=== PATIENT | female | born 1955 | race Caucasian/White ===

== ENCOUNTER 2022-01-20 12:49 | Outpatient (CLI) | payer MEDICARE, MEDICAID, SELFPAY ==
--- NOTE | 2022-01-20 13:21 | XR_ITS ---
WS: [id number] XR lumbar spine f/e only [id number] REASON FOR EXAM: THORACIC BACK PAIN/LUMBAR BACK PAIN FINDINGS: No significant compression deformity or focal lesion of the lumbar vertebrae. There is mild to moderate narrowing of the disc spaces L1-S1 most notable at L4-L5 and L5-S1. There is mild anterolisthesis of L4 on L5. No abnormal vertebral body movement with flexion and extension. The lumbar spine does not appear to be significantly changed compared to 03/08/2018. XR/XR lumbar spine f/e only [id number] IMPRESSION: Stable abnormal lumbar spine as above.
--- NOTE | 2022-01-20 13:21 | XR_ITS ---
WS: [id number] XR thoracic spine 3V* [id number] REASON FOR EXAM: THORACIC BACK PAIN FINDINGS: Mild thoracic scoliosis convex right. No significant compression deformity or focal lesion of the thoracic vertebral bodies. Narrowing of the intervertebral disc spaces with osteophytosis in the mid and lower thoracic spine. The thoracic spine appears relatively unchanged compared to 04/21/2015. XR/XR thoracic spine 3V* [id number] IMPRESSION: Stable thoracic spine with mild scoliosis and degenerative spondylosis.
== END 2022-01-20 12:50 | disposition home or self-care (01) ==
LOC: RAD 12:56
PROVIDERS: PCP Nurse Practitioner Family; Visit Provider Nurse Practitioner Family
DX: M54.50 Low back pain, unspecified (principal); M41.9 Scoliosis, unspecified; M47.814 Spondylosis without myelopathy or radiculopathy, thoracic region
CPT/HCPCS: 72072; 72120

== ENCOUNTER 2022-07-08 08:49 | Emergency (ER) | payer MEDICARE, MEDICAID, SELFPAY ==
[2022-07-08 08:54] VITALS: BP 114/70; PULSE 92; RESP 18; TEMP 36.2; O2SAT 98; BMI 25.0
--- NOTE | 2022-07-08 09:06 | XRR_ITS ---
PROCEDURE INFORMATION: Exam: XR Left Foot Exam date and time: 07/08/2022 9:10 AM Age: 66 years old Clinical indication: Pain and injury or trauma; Fall; Sprain or strain; Foot; Left; Additional info: Fall/pain TECHNIQUE: Imaging protocol: Radiologic exam of the Left foot. Views: 3 or more views. COMPARISON: No relevant prior studies available. FINDINGS: Bones/joints: No acute fracture is seen. The joints are unremarkable. Os trigonum noted. Small calcaneal plantar Achilles enthesophyte noted. Soft tissues: Minimal soft tissue swelling surrounding the ankle. XR/XR foot LT min 3V* [id number] IMPRESSION: No fracture or dislocation identified.
--- NOTE | 2022-07-08 09:06 | XRR_ITS ---
PROCEDURE INFORMATION: Exam: XR Left Ankle Exam date and time: 07/08/2022 9:10 AM Age: 66 years old Clinical indication: Pain and injury or trauma; Fall; Sprain or strain; Ankle; Left; Additional info: Fall/pain TECHNIQUE: Imaging protocol: Radiologic exam of the Left ankle. Views: 3 or more views. COMPARISON: No relevant prior studies available. FINDINGS: Bones/joints: The ankle mortise is normally aligned. No acute fracture is seen. Soft tissues: Minimal soft tissue swelling surrounding the ankle. XR/XR ankle LT min 3V* [id number] IMPRESSION: No fracture or dislocation.
--- NOTE | 2022-07-08 09:07 | W.ED.LOWEXIN ---
HPI - Extremity Injury (Lower) General: Chief Complaint: Extremity Injury, Lower Stated Complaint: fall, left foot injury Time Seen by Provider: 07/08/22 08:51 Source: patient Mode of arrival: ambulatory Limitations: no limitations History of Present Illness: Patient is a 66-year-old female who presents to ED today for evaluation of a left foot and ankle injury that she sustained 3 days ago after tripping and twisting the ankle. Patient states it bent backwards . She states she was initially able to walk on it but no longer can. She has noticed swelling and bruising to the top of her foot and ankle. She has no other injuries or complaints at this time. complaint: ankle injury and foot injury Onset (ago): day(s) Type of Injury: inversion and hyperflexion Place: home Severity: moderate Relieving factors: immobilization Exacerbating factors: weight bearing, movement and palpation Associated symptoms: Reports inability to bear weight Other symptoms: none Review of Systems Musc: Reports: extremity pain (L foot), extremity swelling (L foot) and joint pain (L ankle) Neuro: Denies: numbness in extremities or sensory changes Physical Exam Const: COMMON NORMALS: no acute distress, patient oriented x3, no limitations, healthy appearing, alert and well nourished Extremity: COMMON NORMALS: capillary refill normal GENERAL: Yes normal exam except as noted LEFT LOWER EXTREMITY: Yes ankle joint and Yes foot & digits OTHER: pt has ecchymosis and swelling throughout dorsolateral L foot extending into ankle; most of her tenderness does seem to be mid dorsal foot; no obvious bony deformities/dislocations noted; cap refill/pulses/sensation normal Neuro: COMMON NORMALS: patient oriented x3, moves all extremities, no focal motor deficits and no sensory deficits noted SENSORIUM/ORIENTATION: Yes alert Course Vital Signs: Vital signs: Vital Signs Temperature 97.1 F L 07/08/22 08:54 Pulse Rate 77 07/08/22 10:07 Respiratory Rate 16 07/08/22 10:07 Blood Pressure 120/67 07/08/22 10:07 Pulse Oximetry 99 07/08/22 10:07 Oxygen Delivery Me thod 07/08/22 08:54 MDM - Extremity Injury (Lower) Medical Decision Making No fractures visualized on XRs. Discussed CHARLEEN wrap and crutches however patient states she does not feel she would be a very good candidate for crutches as she is a cancer patient and chronically weak. She feels that crutches would increase her fall risk. She is requesting some type of splint/boot to help her be able to ambulate better on her foot. We will try to place her in a [employer] surgical shoe for support. Recommend ice and elevation. I want her to follow-up with her PCP in 1 to 2 weeks if pain does not seem to be improving. Lab Data Radiology Impressions Ankle X-Ray 07/08/22 09:06 IMPRESSION: No fracture or dislocation. Foot X-Ray 07/08/22 09:06 IMPRESSION: No fracture or dislocation identified. Discharge Plan Discharge Patient Disposition: Home Clinical Impression: Sprain of left foot Qualifiers: Encounter type: initial encounter Qualified Code(s): S93.602A - Unspecified sprain of left foot, initial encounter Condition: Stable Discharge Orders: Discharge ED (Routine); Ordered 07/08/22 Ordered By: Raissa Fisher Referrals: Gustavo Bentley MD [Primary Care Provider] - Patient Instructions: RICE Therapy Coding Level of Care Code ED Sorting Cows Worker for Adrianag Fwd Exam Expanded Problem Focused
--- NOTE | 2022-07-08 09:09 | PC.NURSE ---
pt reports a fall on 07/05 after tripping over her slipper that wasnt on correctly. pt c/o pain to right foot, worse to lateral ankle. denies other injury. swelling and bruising noted over left foot, pedal pulse palpable. CMS intact, pt does reports some numbness and tingling.
--- NOTE | 2022-07-08 09:38 | PC.NURSE ---
report given to TIM Mata to assume care
[2022-07-08 10:07] VITALS: BP 120/67; PULSE 77; RESP 16; O2SAT 99
--- NOTE | 2022-07-08 10:22 | PC.NURSE ---
womens large post surgical shoe applied to left foot per verbal order from carlotta long
[2022-07-08 10:28] VITALS: BP 125/76; PULSE 86; RESP 16; O2SAT 94
== END 2022-07-08 10:29 | disposition home or self-care (01) ==
PROVIDERS: Emergency Provider Physician Assistant; PCP Internal Medicine
DX: S93.602A Unspecified sprain of left foot, initial encounter (principal); X50.1XXA Overexertion from prolonged static or awkward postures, initial encounter
CPT/HCPCS: 73610; 73630; 99283

== ENCOUNTER 2022-11-19 08:07 | Oncology outpatient (recurring) (ONCR) | payer MEDICARE, MEDICAID, SELFPAY ==
[2022-11-19 09:21] LABS: Basophils % 0.8 %; Eosinophils # 0.1 10^3/uL (0.0-0.8); Eosinophils % 3.1 %; Hematocrit 38.3 % (37.0-47.0); Hemoglobin 12.5 g/dL (11.5-15.3); Lymphocytes # 0.6 10^3/uL (0.8-4.8); Lymphocytes % 15.5 %; Mean Corpuscular HGB Conc 32.6 g/dL (30.0-36.0); Mean Corpuscular Hemoglobin 31.8 pg (28.0-34.0); Mean Corpuscular Volume 97.5 fl (81-99); Mean Platelet Volume 10.3 fL (7.4-10.4); Monocytes # 0.4 10^3/uL (0.2-0.9); Monocytes % 9.8 %; Neutrophils # 2.73 10^3/uL (1.8-7.7); Neutrophils % 70.5 %; Nucleated Red Blood Cells % 0 %; Platelet Count 232 10^3/cmm (130-400); Red Blood Count 3.93 10^6/uL (4.1-5.3); Red Cell Distribution Width 14.5 % (12.1-15.1); White Blood Count 3.9 10^3/uL (4.0-10.0)
[2022-11-19 09:56] LABS: Alanine Aminotransferase 13 U/L (0-33); Albumin Level 3.9 g/dL (3.5-5.2); Alkaline Phosphatase 44 U/L (35-105); Anion Gap 12.9 (5-19); Aspartate Amino Transferase 17 U/L (0-32); Blood Urea Nitrogen 7 mg/dL (8-23); Calcium 9.4 mg/dL (8.5-10.5); Carbon Dioxide 26 mmol/L (22-29); Chloride 104 mmol/L (98-107); Globulin 2.4 g/dL (1.3-4.6); Glomerular Filtration Rate 99.4 mL/min (90-130); Glucose 93 mg/dL (65-115); Osmolality Calculated 286 mOsm/kg (285-295); Potassium 3.9 mmol/L (3.5-5.1); Sodium 139 mmol/L (136-145); Thyroid Stimulating Hormone 3.23 uIU/mL (0.27-4.20); Total Bilirubin 0.5 mg/dL (0.15-1.2); Total Protein 6.3 g/dL (6.6-8.7)
[2022-11-19 15:59] VITALS: BP 120/78; PULSE 74; RESP 18; TEMP 36.6; O2SAT 98
== END 2022-12-02 23:59 | disposition home or self-care (01) ==
PROVIDERS: PCP Family Medicine; Visit Provider Internal Medicine Medical Oncology
DX: C21.1 Malignant neoplasm of anal canal (principal); Z95.828 Presence of other vascular implants and grafts; Z92.3 Personal history of irradiation
CPT/HCPCS: 36591; 80053; 84443; 85025; 99205

== ENCOUNTER 2022-12-15 14:23 | Oncology outpatient (recurring) (ONCR) | payer MEDICARE, MEDICAID, SELFPAY | END 2023-01-01 23:59 | disposition home or self-care (01) | PROVIDERS: PCP Family Medicine; Visit Provider Internal Medicine Medical Oncology | DX: Z08 Encounter for follow-up examination after completed treatment for malignant neoplasm (principal); Z85.048 Personal history of other malignant neoplasm of rectum, rectosigmoid junction, and anus; Z92.3 Personal history of irradiation; Z87.891 Personal history of nicotine dependence | CPT/HCPCS: 99213 ==

== ENCOUNTER 2023-01-27 10:16 | Outpatient (CLI) | payer MEDICARE, MEDICAID, SELFPAY ==
--- NOTE | 2023-01-27 10:26 | CT_ITS ---
WS: [id number] LDCT LUNG CANCER SCREENING TECHNIQUE: Noncontrast CT of the chest with coronal and sagittal reformatted images. CLINICAL INFORMATION: HISTORY OF TOBACCO USE COMPARISON: None. DLP: 52.30 mGy.cm DIvol: Mean CTDIvol: 1.00 (mGy) All CT scans at [facility] use at least one of these dose optimization techniques: automat ed exposure control; mA and/or kV adjustment per patient size (includes targeted exams where dose is matched to clinical indication); or iterative reconstruction. FINDINGS: Lungs are well aerated. No acute pulmonary infiltrates. No suspicious pulmonary parenchymal abnormalities. Normal caliber thoracic aorta. Aortic calcification. No axillary lymphadenopathy. Small RIGHT anterio r upper chest wall nodule or fluid in the area of recently removed port. No axillary lymphadenopathy. Adrenal glands are normal. Normal GE junction. Mild thoracic kyphosis. Anterior hypertrophic changes thoracic spine. CT/CT lung screening [id number] IMPRESSION: LUNG-RADS: 1-Negative FOLLOW UP: 12 Month: Continue annual screening with LDCT
--- NOTE | 2023-01-27 10:38 | MM_ITS ---
WS: [id number] BILATERAL 3D TOMOSYNTHESIS DIGITAL SCREENING MAMMOGRAPHY WITH CAD CLINICAL INFORMATION: SCREENING HISTORY: Screening mammogram. No current complaints. COMPARISON: None. TECHNIQUE: Bilateral CC and MLO views. FINDINGS: Scattered fibroglandular densities bilaterally. No suspicious focal mass, asymmetry, calcifications, or architectural distortion. No evidence of malignancy. Punctate and lucent centered calcifications. MM/[place] [id number] IMPRESSION: BI-RADS: 2-Benign FOLLOW UP: 1 Year Follow-up Recommend return to annual screening mammography.
== END 2023-01-27 10:17 | disposition home or self-care (01) ==
PROVIDERS: PCP Family Medicine; Visit Provider Family Medicine
DX: Z12.2 Encounter for screening for malignant neoplasm of respiratory organs (principal); Z12.31 Encounter for screening mammogram for malignant neoplasm of breast
CPT/HCPCS: 71271; 77063; 77067

== ENCOUNTER 2023-03-23 08:24 | Oncology outpatient (recurring) (ONCR) | payer MEDICARE, MEDICAID, SELFPAY | END 2023-04-03 23:59 | disposition home or self-care (01) | PROVIDERS: PCP Family Medicine; Visit Provider Internal Medicine Medical Oncology | DX: C21.1 Malignant neoplasm of anal canal (principal); R53.83 Other fatigue; Z79.899 Other long term (current) drug therapy | CPT/HCPCS: 99213 ==

== ENCOUNTER 2023-04-29 14:10 | Outpatient (CLI) | payer MEDICARE, MEDICAID, SELFPAY ==
--- NOTE | 2023-04-29 14:14 | XR_ITS ---
WS: [id number] DEXA (DUAL ENERGY X-RAY ABSORPTIOMETRY) Bone mineral density was performed using a Zadby machine. HISTORY: Osteoporosis screening COMPARISON: None available. Lumbar spine BMD (L1-L4): 1.346 g/cm2 T score: 1.4 Z score: 2.9 Total hip BMD: Left: 0.975 g/cm2. T score: -0.3 Z score: 1.0 Right: 0.999 g/cm2. T score: -0.1 Z score: 1.2 10 year probability of a major osteoporotic fracture is 9.3%. IMPRESSION: NORMAL BONE MINERAL DENSITY based upon the WHO classification for females.
== END 2023-04-29 14:11 | disposition home or self-care (01) ==
LOC: RAD 14:10
PROVIDERS: PCP Family Medicine; Visit Provider Family Medicine
DX: Z13.820 Encounter for screening for osteoporosis (principal); Z78.0 Asymptomatic menopausal state
CPT/HCPCS: 77080

== ENCOUNTER 2024-03-21 08:03 | Emergency (ER) | payer MEDICARE, MEDICAID, SELFPAY ==
[2024-03-21 08:07] VITALS: BP 155/79; PULSE 72; RESP 18; TEMP 36.8; O2SAT 95; BMI 28.8
--- NOTE | 2024-03-21 08:11 | XR_ITS ---
WS: [id number] PORTABLE CHEST HISTORY: Shortness of breath COMPARISON: 10/14/2018 Lungs are clear and well expanded. No pleural effusion or pneumothorax. Cardiac size: Normal. Mediastinum/Aorta: Normal mediastinum. Deformity of the distal LEFT clavicle is probably from an old remote fracture with hypertrophic bone formation. XR/XR chest 1V portable [id number] IMPRESSION: No pneumonia.
--- NOTE | 2024-03-21 08:11 | ECG_ITS ---
[facility] Test Date: 2024-03-21 Pat Name: Sara Márquez Department: Room: Gender: Female Registrar Assistant: : 1955 Requested By: Brenda Goetz Order Number: [id number] Jose Miguel MD: Enoc Cummins M.D. Measurements Intervals [place] Rate: 65 P: 64 DE: 203 QRS: 42 QRSD: 73 T: 73 QT: 397 QTc: 414 Interpretive Statements SINUS RHYTHM POSSIBLE LEFT ATRIAL ENLARGEMENT [-0.1mV P-WAVE IN V1/V2] LOW QRS VOLTAGE IN PRECORDIAL LEADS [QRS DEFLECTION < 1.0 mV IN CHEST LEADS] Compared to ECG 07/12/2015 13:20:51 Low QRS voltage now present Electronically Signed On 03-21-2024 11:15:12 CDT by Enoc Cummins M.D. [id number]
[2024-03-21 08:15] VITALS: BP 155/79; RESP 18; O2SAT 98
[2024-03-21 08:42] LABS: Basophils % 0.8 %; Eosinophils # 0.2 10^3/uL (0.0-0.8); Eosinophils % 3.8 %; Hematocrit 39.7 % (36-47); Lymphocytes # 0.7 10^3/uL (0.8-4.8); Mean Corpuscular HGB Conc 33.2 g/dL (30-55); Mean Corpuscular Hemoglobin 31.1 pg (27-33); Mean Corpuscular Volume 93.6 fl (85-98); Mean Platelet Volume 9.9 fL (7.4-10.4); Monocytes # 0.4 10^3/uL (0.2-0.9); Monocytes % 8.6 %; Neutrophils # 3.39 10^3/uL (1.8-7.7); Neutrophils % 71.6 %; Nucleated Red Blood Cells % 0 %; Platelet Count 243 10^3/cmm (157-399); Red Blood Count 4.24 10^6/uL (3.85-5.65); Red Cell Distribution Width 14.7 % (12.1-15.1); White Blood Count 4.74 10^3/uL (3.29-11.43)
--- NOTE | 2024-03-21 08:58 | ED_ITS ---
HPI - Extremity Problem 2 General: Chief complaint: Extremity Problem,Nontraumatic Stated complaint: Left hip pain/lower abd and back/blood in stool Time Seen by Provider: 03/21/24 08:06 History of Present Illness: 68-year-old female who presents emergenc y room with hip and low back pain. Apparently this is chronic. She is listed in her pain meds morphine and oxycodone. She says she needs to get back in with a pain doctor but has not been able to. She says she also has a history of colon cancer but quit with follow-up with that. Is also complaining of some lower abdominal pain. No nausea or vomiting. She also says she feels somewhat short of breath. Some cough. She is a former smoker. No altered mental status. No focal motor deficits. Related Data Home Medications Medication Instructions Recorded Confirmed polyethylene glycol 3350 17 17 g PO DAILY PRN constipation 07/24/22 03/21/24 gram/dose oral powder (Miralax) turmeric 400 mg capsule See Rx Instructions PO .topical 11/19/22 03/21/24 Previous Rx's Medication Instructions Recorded estradiol 0.01% (0.1 mg/gram) See Rx Instructions .Route 01/17/24 vaginal cream .COMPLEX #43 grams azithromycin 250 mg tablet See Rx Instructions PO .COMPLEX #6 03/21/24 (Zithromax Z-Handy) tabs prednisone 20 mg tablet 60 mg (3 x 20 mg) PO DAILY #20 tabs 03/21/24 tramadol 50 mg tablet 50 mg PO Q8H PRN pain #20 tabs 03/21/24 Allergies Allergy/AdvReac Type Severity Reaction Status Date / Time No Known Allergies Allergy Verified 03/23/23 10:23 Review of Systems 2 Narrative: Constitutional symptoms: Negative except as documented in HPI. Skin symptoms: Negative except as documented in HPI. Eye symptoms: Negative except as documented in HPI. ENMT symptoms: Negative except as documented in HPI. Respiratory symptoms: Negative except as documented in HPI. Cardiovascular symptoms: Negative except as documented in HPI. Gastrointestinal symptoms: Negative except as documented in HPI. Genitourinary symptoms: Negative except as documented in HPI. Musculoskeletal symptoms: Negative except as documented in HPI. Neurologic symptoms: Negative except as documented in HPI. Psychiatric symptoms: Negative except as documented in HPI. Endocrine symptoms: Negative except as documented in HPI. PFS ED 2 PFSH: Medical History Anal cancer Degenerative arthritis Degenerative joint disease of spine Hx of class IV angina pectoris Surgical History History of coronary angiogram (2013) Hx of hysterectomy Family History Father CAD (coronary artery disease) Diabetes Dementia Hyperlipidemia Hypertension Mother Diabetes COPD (chronic obstructive pulmonary disease) Hyperlipidemia Hypertension Brother CAD (coronary artery disease) Sister Diabetes Hypertension Other Cancer Lung disease Psychiatric illness Stroke Denies family history of Clotting disorder Chronic kidney disease (CKD) Suicide Anesthesia complication Bleeding disorder Social History (Updated 03/23/23 @ 09:37 by Dwain Elkins) Smoking and tobacco/nicotine status: current every day tobacco/nicotine user Second hand smoke exposure: No Alcohol intake: current Alcohol intake frequency: holidays/special occasions only Substance/Drug Use: never Lives independently: Yes Marital status: service: No Current occupational status: disabled Current gender identity: Female Special ad needs: No Agree to transfusion: Yes Physical Exam 2 Narrative: EXAM NARRATIVE: General: Alert, no acute distress. Skin: Warm, dry. Head: Normocephalic, atraumatic. Neck: Supple, trachea midline. Eye: Extraocular movements are intact. Ears, nose, mouth and throat: mucosa moist. Cardiovascular: Regular, Normal peripheral perfusion. Respiratory: Lungs are clear to auscultation, respirations are non-labored, breath sounds are equal, Symmetrical chest wall expansion. Gastrointestinal: Soft, Nontender, Non distended Musculoskeletal: Normal ROM, no deformity. Neurological: Alert and oriented, No focal neurological deficit observed. Psychiatric: Cooperative, appropriate mood & affect. Course 2 Vital Signs: Vital signs: Vital Signs Temperature 98.2 F 03/21/24 08:07 Pulse Rate 74 03/21/24 12:18 Respiratory Rate 16 03/21/24 09:25 Blood Pressure 139/71 03/21/24 12:18 Pulse Oximetry 95 03/21/24 12:18 Oxygen Delivery Me thod Room Air 03/21/24 09:25 MDM - Extremity (Nontraumatic) Medical Decision Making Differential diagnosis for patient with shortness of breath includes but is not limited to and based on the above HPI, review of systems and physical exam: Pneumonia. Bronchitis. Asthma or COPD with acute exacerbation. Acute coronary syndrome / [place]. Pulmonary embolism. Anxiety. Congestive heart failure. Viral infections including influenza and Covid-19. Atrial fibrillation. Anxiety. Pleural effusion. Pneumothorax. Workup: Lab work, chest X-ray and EKG ordered to evaluate, rule in and rule out above pathologies Chest x-ray: No acute process. No infiltrate. No pneumothorax. This was reviewed and interpreted by myself the ER physician. Lab Review: Laboratory results were reviewed and interpreted by myself the emergency room physician. No leukocytosis. Hemoglobin normal at 13. No renal failure. LFTs are normal. Urinalysis is negative for infection. CT of the abdomen and pelvis with contrast: No acute process. She has diffuse diverticulosis. There is some rectal thickening but no obvious masses. This was reviewed and interpreted by myself the emergency room physician. I also reviewed the radiology report. I reviewed the patient's medical record. Reexamination: Patient remained stable. No increased work of breathing. No altered mental status. No focal motor deficits. Assessment and plan: Chronic pain syndrome COPD exacerbation ?IV steroids in the emergency room Toradol and albuterol. She has a history of being on morphine and oxycodone. Advised that she follow-up with a pain doctor if she wants to resume these pain medications. - Discharged home - Discussed findings and plan with patient. Answered any questions. - All laboratory values were reviewed and interpreted personally by myself, the ER physician - All imaging was reviewed and interpreted personally by myself, the ER physician. - Evaluation and treatment of this problem were appropriate in the emergency setting Lab Data 03/21/24 08:32 03/21/24 08:32 Radiology Impressions Chest X-Ray 03/21/24 08:11 IMPRESSION: No pneumonia. Chest/Abdomen/Pelvis CT 03/21/24 09:34 IMPRESSION: 1. No pneumonia. 2. Mild pylorus and proximal duodenal wall thickening. May be due to mild gastritis or duodenitis. No ulcer identified. No free fluid or free air. 3. Near diffuse albrecht diverticulosis without acute diverticulitis. 4. Minimal thickening of the rectal wall with perirectal fat stranding. No mass is identified. Laboratory Results WBC 4.74 10^3/uL (3.29-11.43) 03/21/24 08:32 RBC 4.24 10^6/uL (3.85-5.65) 03/21/24 08:32 Hgb 13.20 g/dL (11.27-16.99) 03/21/24 08:32 Hct 39.7 % (36-47) 03/21/24 08:32 MCV 93.6 fl (85-98) 03/21/24 08:32 MCH 31.1 pg (27-33) 03/21/24 08:32 MCHC 33.2 g/dL (30-55) 03/21/24 08:32 RDW 14.7 % (12.1-15.1) 03/21/24 08:32 Plt Count 243 10^3/cmm (157-399) 03/21/24 08:32 MPV 9.9 fL (7.4-10.4) 03/21/24 08:32 Neut % (Auto) 71.6 % 03/21/24 08:32 Lymph % (Auto) 15.0 % 03/21/24 08:32 Cole % (Auto) 8.6 % 03/21/24 08:32 Eos % (Auto) 3.8 % 03/21/24 08:32 Baso % (Auto) 0.8 % 03/21/24 08:32 Neut # (Auto) 3.39 10^3/uL (1.8-7.7) 03/21/24 08:32 Lymph # (Auto) 0.7 10^3/uL (0.8-4.8) L 03/21/24 08:32 Cole # (Auto) 0.4 10^3/uL (0.2-0.9) 03/21/24 08:32 Eos # (Auto) 0.2 10^3/uL (0.0-0.8) 03/21/24 08:32 Baso # (Auto) 0.0 10^3/uL (0.0-0.1) 03/21/24 08:32 Nucleated RBC % (auto) 0 % 03/21/24 08:32 Nucleated RBCs # 0.0 /100WBC 03/21/24 08:32 Sodium 141 mmol/L (136-145) 03/21/24 08:32 Potassium 4.4 mmol/L (3.5-5.1) 03/21/24 08:32 Chloride 107 mmol/L (98-107) 03/21/24 08:32 Carbon Dioxide 24 mmol/L (22-29) 03/21/24 08:32 Anion Gap 14.4 (5-19) 03/21/24 08:32 BUN 11 mg/dL (8-23) 03/21/24 08:32 Creatinine 0.7 mg/dL (0.5-0.9) 03/21/24 08:32 GFR Calculation 83.0 mL/min (90-130) L 03/21/24 08:32 Glucose 131 mg/dL (65-115) H 03/21/24 08:32 Calculated Osmolality 293 mOsm/kg (285-295) 03/21/24 08:32 Calcium 9.1 mg/dL (8.5-10.5) 03/21/24 08:32 Total Bilirubin 0.4 mg/dL (0.15-1.2) 03/21/24 08:32 AST 16 U/L (0-32) 03/21/24 08:32 ALT 14 U/L (0-33) 03/21/24 08:32 Alkaline Phosphatase 55 U/L (35-105) 03/21/24 08:32 C-Reactive Protein 3.0 mg/L (0.0-4.9) 03/21/24 08:32 NT-Pro-B Natriuret Pep < 36 pg/mL (0-125) 03/21/24 08:32 Total Protein 6.7 g/dL (6.6-8.7) 03/21/24 08:32 Albumin 4.0 g/dL (3.5-5.2) 03/21/24 08:32 Globulin 2.7 g/dL (1.3-4.6) 03/21/24 08:32 Urine Color Yellow (Yellow) 03/21/24 08:40 Urine Appearance Clear (CLEAR) 03/21/24 08:40 Urine pH 5 (5-7) 03/21/24 08:40 Ur Specific [place] 1.015 (1.005-1.030) 03/21/24 08:40 Urine Protein Neg (Negative) 03/21/24 08:40 Urine Glucose (UA) Norm (Normal) 03/21/24 08:40 Urine Ketones Negative (Negative) 03/21/24 08:40 Urine Blood Neg (Negative) 03/21/24 08:40 Urine Nitrate Negative (Negative) 03/21/24 08:40 Urine Bilirubin Neg (Negative) 03/21/24 08:40 Urine Urobilinogen Norm mg/dL (Negative) 03/21/24 08:40 Ur Leukocyte Esterase 1+ (Negative) H 03/21/24 08:40 Urine RBC None /hpf (0-2) 03/21/24 08:40 Urine WBC 0-4 /hpf (0-5) H 03/21/24 08:40 Ur Squamous Epith Cells 0-4 /hpf (0-5) H 03/21/24 08:40 Amorphous Sediment Not Reportable 03/21/24 08:40 Urine Bacteria None /hpf (NONE) 03/21/24 08:40 Urine Mucus Trace /hpf 03/21/24 08:40 All radiology interpretation(s) finalized by discharge Discharge Plan Discharge Patient Disposition: Home Clinical Impression: COPD with acute exacerbation, Chronic pain syndrome Condition: Stable Prescriptions: New Zithromax Z-Handy 250 mg tablet See Rx Instructions .ROUTE .COMPLEX Qty: 6 0RF Rx Instructions: For 250 mg dose pack: take 500 mg today (day 1), then 250 mg for 4 days (days 2-5) prednisone 20 mg tablet 60 mg PO DAILY Qty: 20 0RF Rx Instructions: 3 tabs (60 mg) x 3 days. 2 tabs (40 mg) x 3 days. 1 tab (20 mg) x 3 days. 1/2 tab (10 mg) x 4 days tramadol 50 mg tablet 50 mg PO Q8H PRN (Reason: pain) Qty: 20 0RF No Action polyethylene glycol 3350 [Miralax] 17 gram/dose powder 17 g PO DAILY PRN (Reason: constipation) turmeric 400 mg capsule See Rx Instructions PO .topical Rx Instructions: paste with H2O2 (hydrogen Peroxide orally TOPICAL; estradiol 0.01 % (0.1 mg/gram) cream See Rx Instructions .ROUTE .COMPLEX Qty: 43 0RF Dose Instruction: INSERT 1 APPLICATORFUL VAGINALLY EVERY OTHER DAY FOR 14 DAYS Rx Instructions: INSERT 1 APPLICATORFUL VAGINALLY EVERY OTHER DAY FOR 14 DAYS Discharge Orders: Discharge ED (Routine); Ordered 03/21/24 Ordered By: Brenda Rodriguez Referrals: Osbaldo Kumar MD [Primary Care Provider] - Discharge Diet: Usual diet Discharge Activity: Increase activity as tolerated Patient Instructions: COPD (Chronic Obstructive Pulmonary Disease) (ED) Activity Restrictions/Additional Instructions: Thank you for choosing [facility] for your healthcare needs today. Please realize this is an emergency room and that we are providing you with a medical screening exam and this may not be complete and all inclusive of all the testing and or work up that you may need to determine your ailment or severity of your illness. You have been screened and evaluated and felt safe for discharge. Health conditions do change or evolve sometimes and as such it is important that you follow up with your Primary Doctor to be re checked, 3-5 days is a general good time frame for follow up. You are always welcome to return to the ED for re assessment if your symptoms are worsening or you have new concerns Coding Level of Care Code ED Multifocal Button Inspector for Jean-Pierre Burkett
[2024-03-21 09:17] LABS: Alanine Aminotransferase 14 U/L (0-33); Alkaline Phosphatase 55 U/L (35-105); Anion Gap 14.4 (5-19); Aspartate Amino Transferase 16 U/L (0-32); Blood Urea Nitrogen 11 mg/dL (8-23); Calcium 9.1 mg/dL (8.5-10.5); Carbon Dioxide 24 mmol/L (22-29); Chloride 107 mmol/L (98-107); Creatinine Clr Calc Pharmacy 68.7198; Globulin 2.7 g/dL (1.3-4.6); Glucose 131 mg/dL (65-115); NT Pro B Type Natriuretic Pept < 36 pg/mL (0-125); Osmolality Calculated 293 mOsm/kg (285-295); Potassium 4.4 mmol/L (3.5-5.1); Sodium 141 mmol/L (136-145); Total Bilirubin 0.4 mg/dL (0.15-1.2); Total Protein 6.7 g/dL (6.6-8.7)
[2024-03-21 09:19] LABS: Bilirubin Urine Neg (Negative); Blood Urine Neg (Negative); Glucose Urine UA Norm (Normal); Ketones Urine Negative (Negative); Leukocyte Esterase Urine 1+ (Negative); Nitrate Urine Negative (Negative); Protein Urine Neg (Negative); Specific Gravity, Urine 1.015 (1.005-1.030); Urine Appearance Clear (CLEAR); Urine Color Yellow (Yellow); Urobilinogen Urine Norm (Negative); pH Urine 5 (5-7)
[2024-03-21 09:21] LABS: Add Urine Culture? No; Mucus Urine TRACE /hpf; Squamous Epithelial Cell Urine 0-4 /hpf (0-5); WBC Urine 0-4 /hpf (0-5)
[2024-03-21] MEDS: ketorolac 30 mg/mL INJ 15 MG IVP (09:22)
[2024-03-21] MEDS: methylPREDNISolone sod succ 125 mg/2 mL INJ IVP (09:22)
[2024-03-21] MEDS: albuterol 2.5 mg/3 mL Neb INHALATION (09:24)
[2024-03-21 09:25] VITALS: PULSE 76; RESP 16; O2SAT 95
--- NOTE | 2024-03-21 09:34 | CT_ITS ---
WS: [id number] CT CHEST, ABDOMEN AND PELVIS WITH CONTRAST HISTORY: sob, low abd pain TECHNIQUE: Contiguous 5 mm axial imaging performed through the chest, abdomen and pelvis with IV cont rast, oral contrast has not been provided. Coronal and sagittal reformats chest. Coronal and sagittal reformats through the abdomen and pelvis. All CT scans at [facility] use at least one of the se dose optimization techniques: automated exposure control; mA and/or kV adjustment per patient size (includes targeted exams where dose is matched to clinical indication); or iterative reconstruction. CONTRAST: Omnipaque 350; 100 mL IV. DLP: 1142.08 mGy.cm COMPARISON: Lung screening 01/27/[address]: Lungs are clear. No pneumonia. No pulmonary mass or nodule. Heart is normal size. No perica rdial or pleural effusions. No adenopathy. Very mild esophageal wall thickening. No mass. Abdomen CT: Liver and spleen are normal size. Normal gallbladder. No adrenal mass. Normal pancreas. N o renal obstruction and no solid mass. Moderate atherosclerotic plaque within the aorta. Stomach is not distended. There is mild wall thickening involving the pylorus and proximal duodenum. No small bowel obstruction. Mild near diffuse diverticulosis. Increasing diverticular disease in the sigmoid colon. Rectal wall is difficult to evaluate well. There is mild perirectal fat stranding. Nor mal appendix. No ascites. No adenopathy. Pelvic CT: No free fluid or adenopathy. Urinary bladder is well distended. CT/CT chest abdpel w/*[id number] IMPRESSION: 1. No pneumonia. 2. Mild pylorus and proximal duodenal wall thickening. May be due to mild caroline ritis or duodenitis. No ulcer identified. No free fluid or free air. 3. Near diffuse albrecht diverticulosis without acute diverticulitis. 4. Minimal thickening of the rectal wall with perirectal fat stranding. No mas s is identified.
[2024-03-21 09:37] VITALS: PULSE 72
[2024-03-21] MEDS: iohexol 350 mg/mL 500 mL Btl (per mL) IV (10:10)
[2024-03-21 12:18] VITALS: BP 139/71; PULSE 74; O2SAT 95
== END 2024-03-21 12:19 | disposition home or self-care (01) ==
PROVIDERS: Emergency Provider Emergency Medicine; PCP Family Medicine
DX: J44.1 Chronic obstructive pulmonary disease with (acute) exacerbation (principal); G89.4 Chronic pain syndrome; Z72.0 Tobacco use; Z85.048 Personal history of other malignant neoplasm of rectum, rectosigmoid junction, and anus
CPT/HCPCS: 36415; 71045; 71260; 74177; 80053; 81001; 83880; 85025; 86140; 93005; 94640; 96374; 96375; 99285; J1885; J2919; J7613